=== PATIENT | male | born 1995 | race Caucasian/White ===

== ENCOUNTER 2019-08-14 17:59 | Emergency (ER) | payer OTHER ==
[2019-08-14 18:32] VITALS: BP 118/58
--- NOTE | 2019-08-14 20:05 | UC ---
Hand/Wrist HPI - HPI Summary HPI Summary: punched a wall with right hand about 1 year ago--pain ulnar aspect of hand - History Of Current Complaint Chief Complaint: UCUpperExtremity Stated Complaint: hand injury Time Seen by Provider: 08/14/19 19:22 Hx Obtained From: Patient ?: No Mechanism Of Injury: trauma Onset/Duration: Sudden Onset, Lasting Weeks - 1 Pain Intensity: 3 Pain Scale Used: 0-10 Numeric Character Of Pain: Aching, Throbbing Aggravating Factor(s): Movement Alleviating Factor(s): OTC Meds Associated Signs And Symptoms: Positive: Bruising Related History: Dominant Hand Right - Allergies/Home Medications Allergies/Adverse Reactions: Allergies Allergy/AdvReac Type Severity Reaction Status Date / Time adhesive tape AdvReac Unknown Itching Uncoded 08/14/19 18:32 Home Medications: Home Medications Escitalopram Oxalate [Lexapro 10 mg] 10 mg PO DAILY 08/14/19 [History Confirmed 08/14/19] PMH/Surg Hx/FS Hx/Imm Hx Previously Healthy: Yes - Surgical History Surgical History: Yes Surgery Procedure, Year, and Place: portal vein shunt and creation of new bile duct, CHOLECYSTECTOMY, T&A - Family History Known Family History: Positive: Unknown - Social History Occupation: Unemployed Lives: With Family Alcohol Use: Occasionally Alcohol Amount: drank on friday 04/06. has drunk little [id number], but previously weekly Substance Use Type: None Substance Use Comment - Amount & Last Used: percocet since surgery Smoking Status (MU): Never Smoked Tobacco Have You Smoked in the Last Year: No - Immunization History Vaccination Up to Date: Yes Review of Systems All Other Systems Reviewed And Are Negative: Yes Constitutional: Positive: Negative Skin: Positive: Negative Eyes: Positive: Negative ENT: Positive: Negative Respiratory: Positive: Negative Cardiovascular: Positive: Negative Gastrointestinal: Positive: Negative Genitourinary: Positive: Negative Motor: Positive: Negative Neurovascular: Positive: Negative Musculoskeletal: Positive: Arthralgia - ulnar aspect of left hand Neurological: Positive: Negative Psychological: Positive: Negative Is Patient Immunocompromised?: No Physical Exam Triage Information Reviewed: Yes Appearance: Well-Appearing, No Pain Distress, Well-Nourished Vital Signs: Initial Vital Signs Temp 98.7 F 08/14/19 18:27 Pulse 57 11/02/19 18:27 Resp 16 08/14/19 18:27 BP 118/58 08/14/19 18:27 Pulse Ox 99 08/14/19 18:27 Vital Signs Reviewed: Yes Eye Exam: Normal Eyes: Positive: Conjunctiva Clear ENT Exam: Normal ENT: Positive: Normal ENT inspection, Hearing grossly normal. Negative: Trismus , Muffled voice, Hoarse voice Dental Exam: Normal Neck exam: Normal Neck: Positive: Supple, Nontender, No Lymphadenopathy Respiratory Exam: Normal Respiratory: Positive: Chest non-tender, No respiratory distress, No accessory muscle use Cardiovascular Exam: Normal Cardiovascular: Positive: RRR, Pulses Normal, Brisk Capillary Refill Musculoskeletal Exam: Other Musculoskeletal: Positive: Strength Limited @ - right hand, Edema @ - ulnar aspect right hand Neurological Exam: Normal Neurological: Positive: Alert, Muscle Tone Normal Psychological Exam: Normal Skin: Positive: Other - bruising ulnar aspect of right hand Diagnostics - Radiology No standard instances Radiology Interpretation Completed By: ED Physician Summary of Radiographic Findings: reverse Daniels fracture right 5th metacarpal Hand/Wrist Course/Dx - Course Course Of Treatment: ulnar gutter splint, sling, ibuprofen follow with ortho in 2 days - Differential Dx/Diagnosis Provider Diagnosis: Fracture of fifth metacarpal bone of right hand Discharge ED - Sign-Out/Discharge Documenting (check all that apply): Patient Departure All imaging exams completed and their final reports reviewed: No - Discharge Plan Condition: Stable Disposition: HOME Patient Education Materials: Ibuprofen (By mouth), Hand Fracture (ED), R.I.C.E. Treatment (ED) Referrals: Zac Kennedy MD [Primary Care Provider] - Ana Mace MD [Medical Doctor] - 2 Days - Billing Disposition and Condition Condition: STABLE Disposition: Home - Attestation Statements Provider Attestation: Per institutional requirements, I have reviewed the chart, however, I was not consulted specifically or made aware of this patient by the midlevel provider. I did not personally evaluate, interact with , or disposition this patient.
--- NOTE | 2019-08-15 14:04 | UC ---
- Progress Note Progress Note: wet read correct Course/Dx - Diagnoses Provider Diagnoses: Fracture of fifth metacarpal bone of right hand Discharge ED - Sign-Out/Discharge Documenting (check all that apply): Post-Discharge Follow Up All imaging exams completed and their final reports reviewed: Yes - Discharge Plan Condition: Stable Disposition: HOME Patient Education Materials: Ibuprofen (By mouth), Hand Fracture (ED), R.I.C.E. Treatment (ED) Referrals: Zac Kennedy MD [Primary Care Provider] - Ana Mace MD [Medical Doctor] - 2 Days - Billing Disposition and Condition Condition: STABLE Disposition: Home
== END 2019-08-14 20:22 | disposition home or self-care (01) ==
LOC: UCEAST 17:59
DX: S62.211A Bennett's fracture, right hand, initial encounter for closed fracture (principal); S62.306A Unspecified fracture of fifth metacarpal bone, right hand, initial encounter for closed fracture; Z91.09 Other allergy status, other than to drugs and biological substances; W22.01XA Walked into wall, initial encounter; Y92.9 Unspecified place or not applicable
CPT/HCPCS: 28470; 99202; G0463

== ENCOUNTER 2019-08-24 13:01 | Day surgery (SDC) | payer OTHER ==
--- NOTE | 2019-08-19 16:13 | HP ---
PREOPERATIVE HISTORY AND PHYSICAL: DATE OF ADMISSION/SURGERY: 08/24/19 - [facility] DATE OF OFFICE VISIT/ENCOUNTER: 08/19/19 ATTENDING SURGEON: Ana Mace MD * (DICTATED BY GLORIA SERRANO) PROCEDURE: Closed, possible open reduction percutaneous pinning right fifth metacarpal. HISTORY OF PRESENT ILLNESS: This is a 24-year-old male who injured his right hand when he punched something hard on 08/07/19. He was seen at [facility] on 08/14/19 and had x-rays that showed a displaced and dislocated fracture at the base of the fifth metacarpal. He was placed in a splint and referred to Dr. Mace for followup and further treatment considerations. He denies any other injury or associated numbness or tingling. This is his dominant hand. After evaluation of his hand and review of x-rays by Dr. Mace, he has consented to proceed with surgical intervention for this injury. PAST MEDICAL HISTORY: 1. Portal hypertension. 2. History of splenomegaly. 3. Anxiety/depression. 4. Environmental allergies. PAST SURGICAL HISTORY: 1. Michael-en-Y bypass. 2. Portal venous shunt. 3. Cholecystectomy. 4. Tonsillectomy and adenoidectomy. CURRENT MEDICATIONS: 1. Lexapro 10 mg daily. 2. Zinc 1 tab daily. ALLERGIES: EFFEXOR, PROZAC, REMERON, and ZOLOFT. FAMILY MEDICAL HISTORY: Cancer, hypercholesterolemia, hypertension. SOCIAL HISTORY: The patient says that he is "between jobs." He has been preparing law school applications lately. He denies tobacco use and recreational drug use. He drinks alcohol on occasion. REVIEW OF SYSTEMS: Negative for general, cephalic, cardiovascular, respiratory , GI, , other musculoskeletal, integumentary, endocrine, neurologic, and hematologic symptoms. Infectious Disease: Negative for MRSA, hepatitis C, HIV. PHYSICAL EXAMINATION GENERAL: A well-developed, well-nourished 24-year-old male, in no acute distress. VITAL SIGNS: Height 6 feet 2 inches, weight 190 pounds. Pulse rate 52, blood pressure 122/80. HEENT: Normocephalic, atraumatic. Pupils are equal, round, and reactive to light and accommodation. Extraocular movements are intact. NECK: Supple. No palpable lymph nodes. Throat is clear. PULMONARY: Lungs are clear to auscultation bilaterally. No wheezes, rales, or rhonchi. CARDIOVASCULAR: Regular rate and rhythm. S1, S2. No murmurs, rubs, or gallops. No edema. ABDOMEN: Positive bowel sounds. Soft, nontender. NEUROLOGICAL: Alert and oriented x3. Cranial nerves II through XII are intact. Sensation is intact to light touch in the right upper extremity. MUSCULOSKELETAL: On evaluation of his right hand, there is [id number] swelling. He had good motion in his finger and can make a full fist with no rotational deformity. There is tenderness to palpation at the base of the fifth metacarpal. Skin is intact. Neurovascular function is intact. IMAGING STUDIES: X-rays, AP, lateral, and oblique show a fracture-dislocation at the base of the metacarpal. IMPRESSION: As above. PLAN: The patient is scheduled for closed versus open reduction percutaneous pinning of the right fifth metacarpal with Dr. Mace on 08/24/19. He will return to the office in 10 days postop for followup. A prescription for Street was e- scribed to the patient's pharmacy for postoperative pain management. GLORIA SERRANO [id number]/[facility] #: [id number] MTDRena
[~2019-08-24 13:01] MED LIST: Buffered Lidocaine 1% SYRIN* 1 ML/SYRINGE INTRADERM ONE; Famotidine IV* 10 MG/ML 2 ML (20 mg) IV ONE; Lactated Ringers 1000 ML Bag* 1,000 ML IV SCH
[2019-08-24] MEDS ORDERED: ceFAZolin 2 GM PREMIX in ORs 2 GM/50 ML BAG ONE (13:14)
[2019-08-24] MEDS ORDERED: Famotidine IV* 10 MG/ML 2 ML (20 mg) ONE (13:15)
[2019-08-24] MEDS ORDERED: Lidocaine 1% INJ* 10 MG/ML 30 ML SDV ONE (13:25)
[2019-08-24] MEDS ORDERED: Midazolam* 1 MG/ML 2 ML VIAL (2 MG) ONE (13:40)
[2019-08-24] MEDS ORDERED: fentaNYL* 50 MCG/ML 2 ML VIAL (100 MCG VIAL) ONE (13:47)
[2019-08-24] MEDS ORDERED: Propofol* 500 MG/50 ML BTL ONE (13:54)
[2019-08-24] MEDS ORDERED: Ondansetron INJ* 2 MG/ML VIAL ONE (13:54)
[2019-08-24] MEDS ORDERED: Lidocaine 2% PF * 5 ML VIAL ONE (13:54)
[2019-08-24] MEDS ORDERED: Dexamethasone IV* 4 MG/ML 1 ML (4 MG) ONE (13:54)
[2019-08-24] MEDS ORDERED: Bupivacaine 0.5% SDV PF* 30ML VIAL ONE ×2 (14:08→14:10)
[2019-08-24] MEDS ORDERED: Acetaminophen TAB* 325 MG PO PRN (14:51)
[2019-08-24] MEDS ORDERED: Naloxone* 0.4 MG/ML 1 ML VIAL IV PRN (14:51)
[2019-08-24] MEDS ORDERED: Acetaminophen TAB* 325 MG ONE (15:07)
[2019-08-24 15:36] VITALS: BP 136/56
--- NOTE | 2019-08-24 20:13 | OP ---
DATE OF OPERATION: 08/24/19 [facility] DATE OF : [birth year] SURGEON: Ana Mace MD. FLUID PUMP OPERATOR: GLORIA Ramirez. ANESTHESIA: General. PRE-OP DIAGNOSIS: Fifth metacarpal fracture dislocation in the right hand. POST-OP DIAGNOSIS: Fifth metacarpal fracture dislocation in the right hand. OPERATIVE PROCEDURE: Fifth metacarpal open reduction and pinning. ESTIMATED BLOOD LOSS: Zero. TOURNIQUET TIME: About 20 minutes. INDICATIONS FOR PROCEDURE: Shakeel is a 24-year-old male who punched something hard and suffered a fracture dislocation of his right fifth carpometacarpal joint. This occurred 3 weeks ago. He presents for closed, possible open, reduction and pinning. DESCRIPTION OF PROCEDURE: The patient was brought to the operating room, was given a general anesthetic and placed in the supine position on the operating table with a tourniquet around his right upper arm. The skin of his right upper extremity was prepped and draped in the usual sterile fashion. The hand and forearm were exsanguinated and the tourniquet elevated to 250 mmHg. Attempt at closed reduction was unsuccessful. The metacarpal would not reduce onto the hamate or to the other fracture fragment. So, the hand and forearm were exsanguinated and the tourniquet was elevated to 250 mmHg. A longitudinal incision was made on the dorsoulnar aspect of the fifth CMC joint. The dorsoulnar sensory branch was protected by the assistant manager quality management Cyn Dupont. The periosteum was incised and then we were able to visualize the fracture fragments. These were freed up from the callus that had started to form and then I was able to reduce the fracture fragments to each other and two 0.045 inch K-wires were driven through the base of the fifth metacarpal across the radial fracture fragment and into the fourth metacarpal. An additional K- wire was driven through the base of the fifth metacarpal and into the hamate with the fracture fragments reduced. The position of the hardware and fracture fragments were checked on the C-arm in the AP and lateral views and found to be satisfactory. The wound was copiously irrigated with saline. The periosteum was repaired with 2-0 Vicryl. The skin edges were reapproximated with 4-0 nylon suture. The wound was dressed with Xeroform, 4x4, Webril, and an ulnar gutter splint. The patient tolerated the procedure well and was brought to recovery room in good condition. [id number]/[facility] #: [id number] OPAL
== END 2019-08-24 15:32 | disposition home or self-care (01) ==
LOC: OREAST 13:01
PROVIDERS: ATTEND Orthopaedic Surgery
PROC: 0PSP04Z Reposition Right Metacarpal with Internal Fixation Device, Open Approach (ICD-10-PCS; principal; 2019-08-24 15:00)
DX: S62.316A Displaced fracture of base of fifth metacarpal bone, right hand, initial encounter for closed fracture (principal); K76.6 Portal hypertension; R16.1 Splenomegaly, not elsewhere classified; F41.8 Other specified anxiety disorders; W22.8XXA Striking against or struck by other objects, initial encounter; Y93.89 Activity, other specified; Y92.9 Unspecified place or not applicable
CPT/HCPCS: 76000; A9270-GY; C1776; J0690; J1100; J2250; J2405; J2704; J3010; J3490